=== PATIENT | female | born 1955 | race Caucasian/White ===

== ENCOUNTER → 2017-08-24 | Outpatient (CLI) | payer MEDICARE, OTHER ==
[~2017-08-24] MED LIST: AMLO10; ASPI500; HYDACE5 PO; HYDCHL12.5; LEVSOD150; META800 PO; NAPR500 PO; RXMETA800 PO
[2017-08-24 14:17] LABS: Source, Urine Clean Catch
[2017-08-24 14:29] LABS: Appearance, Urine Clear (Clear); Bacteria Rare /hpf; Bilirubin, Urine Neg (Neg); Blood, Urine 1+ (Neg); Color, Urine Yellow (P-Yellow); Glucose Qualitative, Urine Neg (Normal); Ketones, Urine Neg (Neg); Leukocyte Esterase, Urine Neg (Neg); Mucus Light (0-Heavy); Nitrite, Urine Neg (Neg); Protein, Urine Neg (Neg); Squamous Epithelial Cells Mod /hpf (Few); Urobilinogen, Urine NORM (Normal); White Blood Cells, Urine Rare /hpf (0-5); pH, Urine 6.5 (5.0-8.0)
== END ==
LOC: LAB EV 14:08
PROVIDERS: Internal Medicine
DX: M54.5 Low back pain (principal); R30.0 Dysuria
CPT/HCPCS: 81001; 87086